=== PATIENT | male | born 2000 | race Caucasian/White ===

== ENCOUNTER 2023-01-14 08:21 | Day surgery (SDC) | payer MEDICAID ==
[~2023-01-14] VITALS: Ht 172.7 cm; Wt 87.5 kg
[2023-01-14] MEDS ORDERED: SIMETHICONE 40 MG/0.6 ML ML ONE (09:44)
[2023-01-14] MEDS ORDERED: MIDAZOLAM HCL 5 MG/5 ML VIAL ONE (09:44)
[2023-01-14] MEDS ORDERED: fentaNYL CITRATE/PF 100 MCG/2 ML AMP ONE (09:44)
[2023-01-14 16:27] VITALS: BP_SYST 112
== END 2023-01-14 10:55 | disposition home or self-care (01) ==
LOC: SDS 08:21 → SMU 08:22 → SDS 10:55
PROVIDERS: ATTEND Internal Medicine
DX: R19.4 Change in bowel habit (principal)
CPT/HCPCS: 45380; 88305; 99152; G0378; J2250; J3010